=== PATIENT | female | born 1975 | race Caucasian/White ===

== ENCOUNTER 2022-10-10 08:26 | Day surgery (SDC) | payer OTHER ==
[~2022-10-10] VITALS: Ht 158.8 cm; Wt 83.0 kg
[~2022-10-10 08:26] MED LIST: ASPI-1822 PO; HYDR-4004 PO; LISI10TA30 PO; POTA10TA71 PO
[2022-10-10] MEDS ORDERED: MIDAZOLAM 2 MG/2 ML VIAL ONE (09:55)
[2022-10-10] MEDS ORDERED: fentaNYL citrate 0.05 MG/ML VIAL ONE (09:55)
[2022-10-10] MEDS ORDERED: LIDOCAINE 2% 100 MG/5 ML UJET TP ONE (09:55)
[2022-10-10] MEDS ORDERED: diphenhydrAMINE 50 MG/ML VIAL ONE (09:55)
[2022-10-10] MEDS ORDERED: fentaNYL citrate 0.05 MG/ML VIAL IVP ONE (13:50)
[2022-10-10] MEDS ORDERED: MIDAZOLAM 2 MG/2 ML VIAL IVP ONE (13:50)
== END 2022-10-10 11:43 | disposition home or self-care (01) ==
LOC: MDS 08:26 → MMU 08:27 → MDS 11:43
PROVIDERS: ATTEND Internal Medicine Gastroenterology
DX: Z12.11 Encounter for screening for malignant neoplasm of colon (principal); I10 Essential (primary) hypertension; E11.9 Type 2 diabetes mellitus without complications; J45.909 Unspecified asthma, uncomplicated; Z90.49 Acquired absence of other specified parts of digestive tract; Z98.84 Bariatric surgery status; Z79.899 Other long term (current) drug therapy; Z20.822 Contact with and (suspected) exposure to COVID-19
CPT/HCPCS: 45378; 87426; J2250; J3010; J1200